=== PATIENT | male | born 1990 | race American Indian/Alaskan Native ===

== ENCOUNTER 2018-10-14 15:12 | Emergency (ER) | payer OTHER ==
--- NOTE | 2018-10-14 15:34 | Emergency Department Report ---
Chief Complaint: Dental/Oral Stated Complaint: TOOTHACHE Time Seen by Provider: 10/14/18 15:32 - HPI History of Present Illness: This is a 28 y.o. male that presents with right sided toothache x 1 week. He reports a history of intermittent dental pain that has increased over the past week. - Exam Vital Signs: Vital Signs 10/14/18 15:32 Temperature 98.1 F Pulse Rate 104 H Respiratory 18 Rate Blood Pressure 157/98 O2 Sat by Pulse 99 Oximetry MSE screening note: Focused history and physical exam performed. Due to findings the following was ordered: Fast track for further evaluation. ED Disposition for MSE Condition: Stable
[2018-10-14] MEDS ORDERED: NACL 0.9% 1000 ML 1,000 ML IV ONE (15:41)
[2018-10-14] MEDS ORDERED: TORADOL IV ONE (15:41)
--- NOTE | 2018-10-14 16:32 | Emergency Department Report ---
ED ENT HPI - General Chief complaint: Dental/Oral Stated complaint: TOOTHACHE Time Seen by Provider: 10/14/18 15:32 Source: patient Mode of arrival: Ambulatory Limitations: No Limitations - History of Present Illness Initial comments: Patient is a 28-year-old -Romanian male who comes to the ER today with a weeklong history of not being able to open his mouth. He states that he has lost weight because he can not eat. He states that this started as a sore tooth in the rear by a dentist mouth. He reports a hole being in the tooth. He does not have a dentist nor has he seen a dentist for many years. On admission patient is not hypotensive, tachycardic or febrile. Ambulatory on admit. Past medical history Denies Home medications None MD complaint: tooth pain -: Gradual, days(s) Quality: aching Consistency: constant Context- Dental: history of dental caries, poor dental care Associated Symptoms: toothache - Related Data Allergies Allergy/AdvReac Type Severity Reaction Status Date / Time No Known Allergies Allergy Verified 10/14/18 15:13 ED Dental HPI - General Chief complaint: Dental/Oral Stated complaint: TOOTHACHE Time Seen by Provider: 10/14/18 15:32 Source: patient Mode of arrival: Ambulatory Limitations: No Limitations - Related Data Allergies Allergy/AdvReac Type Severity Reaction Status Date / Time No Known Allergies Allergy Verified 10/14/18 15:13 ED Review of Systems ROS: Stated complaint: TOOTHACHE Other details as noted in HPI Comment: All other systems reviewed and negative Constitutional: denies: chills, fever Eyes: denies: vision change ENT: dental pain. denies: throat pain Respiratory: denies: cough Cardiovascular: denies: palpitations Endocrine: denies: flushing Gastrointestinal: denies: nausea Genitourinary: denies: urgency Musculoskeletal: denies: back pain Skin: denies: rash Neurological: denies: weakness Psychiatric: denies: anxiety Hematological/Lymphatic: denies: easy bleeding ED Past Medical Hx - Past Medical History Previous Medical History?: No - Surgical History Past Surgical History?: Yes Additional Surgical History: right ACL repair - Family History Family history: no significant - Social History Smoking Status: Never Smoker Substance Use Type: Marijuana ED Physical Exam - General Limitations: No Limitations General appearance: alert - Head Head exam: Present: atraumatic, normocephalic - Eye Eye exam: Present: normal appearance, PERRL, EOMI - ENT ENT exam: Present: mucous membranes moist - Expanded ENT Exam Expanded Mouth exam: Present: trismus. Absent: drooling, muffled voice Teeth exam: Present: dental caries 1 - Other (dental pain) - Neck Neck exam: Present: tenderness, meningismus - Respiratory Respiratory exam: Present: normal lung sounds bilaterally - Cardiovascular Cardiovascular Exam: Present: regular rate - GI/Abdominal GI/Abdominal exam: Present: soft - Rectal Rectal exam: Present: deferred - Extremities Exam Extremities exam: Present: normal inspection, full ROM - Back Exam Back exam: Present: normal inspection, full ROM - Neurological Exam Neurological exam: Present: alert, oriented X3, CN II-XII intact - Psychiatric Psychiatric exam: Present: normal affect, normal mood - Skin Skin exam: Present: warm, dry, intact ED Course Vital Signs 10/14/18 10/14/18 10/14/18 15:32 19:17 19:19 Temperature 98.1 F 98.7 F Pulse Rate 104 H 81 Respiratory 18 16 16 Rate Blood Pressure 157/98 Blood Pressure 140/97 [Left] O2 Sat by Pulse 99 99 Oximetry - Reevaluation(s) Reevaluation #1: 1700 ABC intact VSS controlling secretions not drooling afebrile HR 90 on provider exam 10/14/[address] NPO Unasyn/decadron maintenance IVF 1920 pt and mother updated on plan of care [facility] [place] [facility] phoned for transfer Reevaluation #2: 10/14/18 19:51 Dr Valle updated no return call from [facility] transfer center contacted for transfer; for [place] has not returned the call 10/14/18 20:[address] Gunderson - [facility] home on 7 day Augment. pt to see Dr Gunderson in clinic tomorrow, sat, or next pt to call in AM for appnt [phone] Dr Valle did not agree with discharge 10/14/18 20:12 Jerry called back they are unable to reach Dr Plascencia control room helper OFMS Dr Valle updated 2012 [facility] transfer center phoned for transfer [place] does not have [facility] control room helper 2016 [place] [facility] Ivey is control room helper - [phone]- no provided by ER Dr Ivey has been paged No return call from dr Uche Edwards returned the call and Dr Plascencia is still not returning pages Diony Vora is going to call the resident to see if he can reach Dr Plascencia Reevaluation #3: 10/14/18 20:32 taking po from bottle and from [facility] [place] returned call Dr Plascencia accepted pt to [place] [facility] ER to ER ground transportation- [facility] will arrange ER to call resident with Dr Plascencia on arrival RN aware of need for face sheet/ transfer/ records and disc to [place] Pt and family updated Report to Benjamín PONCE for questions from this time forward ED Medical Decision Making - Lab Data Result diagrams: 10/14/18 16:20 10/14/18 16:20 - Radiology Data Radiology results: report reviewed, image reviewed - Medical Decision Making Unasyn IV Decadron IV NS 1L and then NS at 100 ml/h medicated for pain with toradol Labs 10/14/18 10/14/18 16:20 16:20 WBC 11.8 H RBC 4.68 Hgb 13.0 Hct 38.6 MCV 83 L MCH 28 MCHC 34 RDW 14.3 Plt Count 316 Sodium 142 Potassium 4.0 Chloride 102.8 Carbon Dioxide 24 Anion Gap 19 BUN 11 Creatinine 0.8 Estimated GFR > 60 BUN/Creatinine Ratio 14 Glucose [address] noted Discuss[address] with Dr Valle- will transfer to [place] for OMFS see course section of EMR Pt and family updated on plan of care VSS ABC intact at 2100 Report to Bravo PONCE - Differential Diagnosis ro abscess Critical care attestation.: If time is entered above; I have spent that time in minutes in the direct care of this critically ill patient, excluding procedure time. ED Disposition Clinical Impression: Mandibular abscess Disposition: DC/TX-70 ANOTHER TYPE HLTHCARE Is pt being admited?: No Does the pt Need Aspirin: No Condition: Serious Time of Disposition: 21:00
[2018-10-14 16:47] LABS: Hematocrit 38.6 % (35.5-45.6); Mean Corpuscular HGB Conc 34 % (32-34); Mean Corpuscular Volume 83 fl (84-94); Platelet Count 316 K/mm3 (140-440); Red Blood Count 4.68 M/mm3 (3.65-5.03); Red Cell Distribution Width 14.3 % (13.2-15.2)
[2018-10-14 16:55] LABS: BUN/Creatinine Ratio 14; Blood Urea Nitrogen 11 mg/dL (9-20); Calcium 9.6 mg/dL (8.4-10.2); Hemolysis Index 7
[2018-10-14] MEDS ORDERED: BICILLIN L-A IM ONE (18:53)
--- NOTE | 2018-10-14 18:54 | Cat Scan Report ---
PROCEDURE: CT NECK W CON TECHNIQUE: Computerized axial tomography of the soft tissue neck was performed following the IV inje ction of iodinated nonionic contrast. HISTORY: severe dental pain, states can not open mouth COMPARISONS: None . TECHNICAL QUALITY: Satisfactory. FINDINGS: There is a large erosion involving the last molar, right side of the mandible, image 84 series 602. T here is bony reabsorption around the roots of the last molar in the same location. This has eroded th rough the medial aspect of the right side of the mandible seen best on coronal image 47 series 601. T he musculature adjacent to the medial surface of the right side of the mandible, medial pterygoid danuta ears edematous. There appear to be small low-density collections within the pterygoid muscle. This is seen on image 45 series 3 and several of the adjacent images. This area of decreased density measure s 2.4 x 1.4 cm and may represent an abscess. Surrounding musculature is otherwise unremarkable. The prevertebral soft tissues appear normal. Epigl ottis is unremarkable. Nonspecific lymph nodes scattered in the right and left side of the neck. The larynx is unremarkable. Thyroid gland shows no abnormality. The parotid glands and the submandibular glands show no focal abnormalities. IMPRESSION: Large erosion, cavity, visualized last molar on the right posteriorly. There is also bon y reabsorption around the root of the last molar on the right posteriorly. This has eroded through th e medial surface of the right side of the mandible. Areas of decreased density are seen in the muscul ature of the medial surface of the right side of the mandible, medial pterygoid muscle. I cannot excl ude an abscess. Please see above image reference numbers. . No other abnormalities are seen. This document is electronically signed by Jatin Antonio MD., October 14 2018 06:51:58 PM ET
[2018-10-14] MEDS ORDERED: UNASYN/NS 3 GM/100 ML 3 GM/100 ML BAG IV ONE (18:57)
[2018-10-14] MEDS ORDERED: DECADRON IV ONE (19:04)
[2018-10-14 19:28] VITALS: BP 140/97
[2018-10-14] MEDS ORDERED: NACL 0.9% 1000 ML 1,000 ML IV SCH (20:00)
[2018-10-14] MEDS ORDERED: AUGMENTIN 875 MG PO ONE (20:01)
== END 2018-10-14 21:30 | disposition other institution (70) ==
LOC: ED 15:12
DX: M27.2 Inflammatory conditions of jaws (principal); F12.10 Cannabis abuse, uncomplicated
CPT/HCPCS: 36415; 70491; 80048; 85027; 87040; 96365; 96375; 99285; J0295; J1100; J1885; J7030; Q9967

== ENCOUNTER 2018-10-22 11:27 | Emergency (ER) | payer SELFPAY ==
[2018-10-22 11:41] VITALS: BP 144/88
--- NOTE | 2018-10-22 11:54 | Emergency Department Report ---
ED Recheck HPI - General Chief Complaint: Dental/Oral Stated Complaint: ANTIBOTIC REFILL Time Seen by Provider: 10/22/18 11:35 Source: patient Mode of arrival: Ambulatory Limitations: No Limitations - History of Present Illness Initial Comments: This is a 28-year-old male nontoxic, well in appearance with no signs of distress noted that presents with antibiotics refill. Patient stated he was treated for dental abscess with Amox and when he went back for a follow-up they put him back on Amox. Patient stated he has dental surgery in December. Patient s tated he came today because they gave him prescption with the wrong name. Patient denies any facial swelling, fever, chills, headache, nausea, vomiting, chest pain or shortness of breathe. Patient denies any allergies or PMH. MD Complaint: medication refill request Symptoms Since Prior Visit: no new symptoms, improved Associated Symptoms: none. denies: fever, chills, chest pain, shortness of breath, rash, malaise, nasuea, abdominal pain - Related Data Previous Rx's Medication Instructions Recorded Last Taken Type Amoxicillin 500 mg PO Q12H #14 capsule 10/22/18 Unknown Rx Allergies Allergy/AdvReac Type Severity Reaction Status Date / Time No Known Allergies Allergy Verified 10/14/18 15:13 ED Review of Systems ROS: Stated complaint: ANTIBOTIC REFILL Other details as noted in HPI Constitutional: denies: chills, fever Eyes: denies: eye pain, eye discharge, vision change ENT: denies: ear pain, throat pain Respiratory: denies: cough, shortness of breath, wheezing Cardiovascular: denies: chest pain, palpitations Endocrine: no symptoms reported Gastrointestinal: denies: abdominal pain, nausea, diarrhea Genitourinary: denies: urgency, dysuria Musculoskeletal: denies: back pain, joint swelling, arthralgia Skin: denies: rash, lesions Neurological: denies: headache, weakness, paresthesias Psychiatric: denies: anxiety, depression Hematological/Lymphatic: denies: easy bleeding, easy bruising ED Past Medical Hx - Past Medical History Previous Medical History?: No - Surgical History Past Surgical History?: Yes Additional Surgical History: right ACL repair - Social History Smoking Status: Never Smoker Substance Use Type: Marijuana - Medications Home Medications: Home Medications Medication Instructions Recorded Confirmed Last Taken Type Amoxicillin 500 mg PO Q12H #14 capsule 10/22/18 Unknown Rx ED Physical Exam - General Limitations: No Limitations General appearance: alert, in no apparent distress - Head Head exam: Present: atraumatic, normocephalic - Eye Eye exam: Present: normal appearance - ENT ENT exam: Present: normal exam, normal orophraynx, other (no facial swelling. no abscess noted.) - Neck Neck exam: Present: normal inspection, full ROM. Absent: tenderness, meningismus, lymphadenopathy - Respiratory Respiratory exam: Present: normal lung sounds bilaterally. Absent: respiratory distress, wheezes, rales, rhonchi, stridor, chest wall tenderness, accessory muscle use, decreased breath sounds, prolonged expiratory - Cardiovascular Cardiovascular Exam: Present: regular rate, normal rhythm, normal heart sounds. Absent: bradycardia, tachycardia, irregular rhythm, systolic murmur, diastolic murmur, rubs, gallop - Extremities Exam Extremities exam: Present: normal inspection, full ROM - Back Exam Back exam: Present: normal inspection, full ROM - Neurological Exam Neurological exam: Present: alert, oriented X3 - Psychiatric Psychiatric exam: Present: normal affect, normal mood - Skin Skin exam: Present: warm, dry, intact, normal color. Absent: rash ED Course Vital Signs 10/22/18 11:36 Temperature 98.4 F Pulse Rate 70 Respiratory 16 Rate Blood Pressure 144/88 O2 Sat by Pulse 100 Oximetry - Reevaluation(s) Reevaluation #1: 10/22/18 11:57 Patient is speaking in full sentences with no signs of distress noted. ED Recheck MDM - Medical Decision Making Patient has a perception from [facility] for Amox 500 capsule BID #14 for patient Fred Lopez. Patient stated that the prescption was made for patient but written with wrong name. Patient statd that the doctor told him he will get the presscrption for antibiotics. I will refill patient medications. Patient was instructed to Follow-up with a primary care/dentist doctor in 3-5 days or if symptoms worsen and continue return to emergency room as soon as possible. At time of discharge, the patient does not seem toxic or ill in appearance. No acute signs of distress noted. Patient agrees to discharge treatment plan of care. No further questions noted by the patient. Critical care attestation.: If time is entered above; I have spent that time in minutes in the direct care of this critically ill patient, excluding procedure time. ED Disposition Clinical Impression: Medication refill Disposition: DC-01 TO HOME OR SELFCARE Is pt being admited?: No Does the pt Need Aspirin: No Condition: Stable Additional Instructions: Follow-up with a primary care/dentist doctor in 3-5 days or if symptoms worsen and continue return to emergency room as soon as possible. Prescriptions: Amoxicillin 500 mg PO Q12H #14 capsule Referrals: PRIMARY CAREMD [Referring] - 3-5 Days VLAD REED MD [Staff Physician] - 3-5 Days [facility] [Outside] - 3-5 Days Forms: Work/School Release Form(ED)
== END 2018-10-22 12:36 | disposition home or self-care (01) ==
LOC: ED 11:27
DX: K08.89 Other specified disorders of teeth and supporting structures (principal); Z76.0 Encounter for issue of repeat prescription; F12.10 Cannabis abuse, uncomplicated
CPT/HCPCS: 99282